=== PATIENT | female | born 1940 | race Caucasian/White ===

== ENCOUNTER 2018-07-10 13:37 | Day surgery (SDC) | payer MEDICARE, BC ==
[2018-07-10] MEDS ORDERED: LIDOCAINE 1% W/EPI 1:200,000 MPF 30ML SQ ONE (14:52)
--- NOTE | 2018-07-11 09:30 | Operative Note ---
DATE OF SURGERY: 07/10/2018 PREOPERATIVE DIAGNOSIS: Trigger finger right ring finger. POSTOPERATIVE DIAGNOSIS: Trigger finger right ring finger. OPERATION: Right ring finger trigger finger release. STAFF SURGEON: Hemanth Bustamante MD ANESTHESIA: Local. PREPARATION: Chloraprep. INDIVIDUAL CONSIDERATIONS: None. PROCEDURE: The patient was taken to the operating room and placed supine on the operating room table. She had 1% lidocaine with epinephrine infiltrated along the A1 mala volarly. Limb was then elevated and tourniquet was inflated to 250 mmHg. The patient had an incision over the A1 mala volarly along the line of the finger. Sharp dissection carried down through the skin. Blunt dissection carried down to the mala. A omar was made in the mala. It was released proximally and distally under direct view while retracting the neurovascular bundles on either side. After doing the release, I had her flex her finger. It would no longer trigger. Tourniquet was let down and hemostasis was obtained with compression. After irrigation, the skin was approximated with interrupted 3-0 nylon in a vertical mattress fashion. A sterile bulky compressive hand dressing was applied. The patient tolerated procedure well. Needle and sponge counts were correct. Estimated blood loss was minimal. The patient was taken back to recovery in good condition. There were no complications. [facility]
== END 2018-07-10 15:23 | disposition home or self-care (01) ==
LOC: SUR 13:37
PROVIDERS: ATTEND Orthopaedic Surgery
DX: M65.341 Trigger finger, right ring finger (principal)